=== PATIENT | female | born 1965 | race Caucasian/White ===

== ENCOUNTER 2017-03-28 23:25 | Inpatient (IN) | payer OTHER ==
--- NOTE | ~2017-03-28 | HP ---
History And Physical [address] [address] NAME: FRANKLIN MOSQUERA : 61 STATUS : ADM Safia PAT#: [id number] AGE: 51 ADM/REG DATE : 03/28/17 MR#: [id number] REPORT SERV DATE: 03/29/17 DICTATED BY: THEO LUI DATE: 03/29/17 REPORT STATUS : Draft TRANSCRIBED BY: MODL DATE: 03/29/17 DATE OF ADMISSION: 03/28/2017 POINT OF ENTRY: Transfer from [facility] Emergency Department PRIMARY CARE PHYSICIAN: None at this time. CHIEF COMPLAINT: Dehydration, muscle cramps, tetany. HISTORY OF PRESENT ILLNESS: Ms Mosquera is a 51-year-old female with a history of Crohn's disease and status post ileostomy with chronic high ostomy output who presents to [facility] Emergency Room with signs and symptoms of dehydration. The patient is new to this area and just moved from [place] to the [facility] a few days ago. She states that while in [place] secondary to her chronic high ostomy output, she has a port for which she would receive at least 1 L of lactated Ringer's IV fluids on a daily basis in order to prevent dehydration. The patient's last IV fluid infusion was on Friday, at which time, she felt that she needed de-access her port to prevent infection and she is not reactive to her port since. She presented to [facility] with signs of dehydration with dry mouth, craving brine water as well as lower extremity muscle cramps and spasms and upper extremity tetany which are hard for her course so when she gets dehydrated. She denies any fevers, night sweats, chills, chest pain, palpitations, shortness of breath, cough, sputum production, abdominal pain, nausea, vomiting, changes in the consistency frequency or output or volume of her ostomy output, dysuria. She did have a single episode of nausea and vomiting while at [facility] Emergency Department. Initial evaluation at [facility] notable for a white count of 15,100. Her BUN and creatinine were elevated at 57/3.7, amylase and lipase were mildly elevated. She was given IV fluids, a gram of cefepime as well as 30 mg of Toradol for pain, and transferred to [facility] for a higher level of care. COMPREHENSIVE REVIEW OF SYSTEMS: Otherwise, negative unless listed in history of present illness. PREVIOUS MEDICAL HISTORY: 1. Crohn's disease, status post ileostomy with chronic high ostomy output. 2. Chronic kidney stage 3. Baseline creatinine unknown. 3. Anxiety. 4. Depression. 5. Bipolar disease. SURGICAL HISTORY: 1. Ileostomy. History And Physical [address] [address] NAME: FRANKLIN MOSQUERA : 61 STATUS : ADM Safia PAT#: [id number] AGE: 51 ADM/REG DATE : 03/28/17 MR#: [id number] REPORT SERV DATE: 03/29/17 DICTATED BY: THEO LUI DATE: 03/29/17 REPORT STATUS : Draft TRANSCRIBED BY: CARLOS DATE: 03/29/17 2. Cholecystectomy. 3. Partial colon resection. ALLERGIES: TO STADOL, SCOPOLAMINE, VANCOMYCIN, AND LATUDA. HOME MEDICATIONS: Pending at the time of dictation. SOCIAL HISTORY: She denies any tobacco, alcohol, or illicits. 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 FAMILY MEDICAL HISTORY: Mother of complications of alcoholism. Father's history is unknown. She is an only child. LABS AND IMAGING: All obtained from transfer of records from [facility]. 1. White count 15.1, hemoglobin 15.7, hematocrit is 44.2, and platelet count is 362. 2. Sodium is 128, potassium 4.2, chloride 77, carbon dioxide 26, BUN 57, creatinine 3.7, glucose is 149, calcium is 11.0. Protein is 8.8, albumin is 4.9, bilirubin is 1.1, ALT 57, AST 44, alkaline phosphatase is 54. 3. Amylase is 195, upper limit of normal is 109, lipase is upper limit of normal 78. PHYSICAL EXAMINATION: VITAL SIGNS: Temperature is 97.8 degrees Fahrenheit, pulse is 109, respirations 16, saturating 99% on room air, blood pressure is 136/75. GENERAL: The patient is awake, alert, in no acute distress. Resting comfortably in bed. Well-developed, well-nourished female. HEENT: Atraumatic and normocephalic. Slightly dry mucous membranes. Pupils are equal, round, reactive to light and accommodation. Extraocular eye movements intact. No scleral icterus. NECK: No jugular venous distention. No carotid bruits. CARDIAC: Regular rate and rhythm. No murmurs or gallops. Normal S1, S2. LUNGS: Clear to auscultation bilaterally. No wheezes, rhonchi, or crackles. ABDOMEN: The patient has an ostomy in place in the right lower quadrant. Hypoactive bowel sounds throughout, but no rebound, guarding, or rigidity. She is soft and nontender in all quadrants. EXTREMITIES: Warm, perfused. No cyanosis, clubbing, or edema. SKIN: Warm and dry. PSYCH: Affect appropriate. NEURO: Alert and oriented x3. Cranial nerves II through XII grossly intact. Speech is normal. Gait not assessed. ASSESSMENT AND PLAN: Ms Mosquera is a 51-year-old female with history of Crohn's disease, status post ileostomy with chronic high ostomy output who presents with signs and symptoms of dehydration and found to have acute kidney injury. PROBLEM LIST: 1. Acute kidney injury and dehydration. History And Physical [address] [address] NAME: FRANKLIN MOSQUERA : 61 STATUS : ADM Safia PAT#: [id number] AGE: 51 ADM/REG DATE : 03/28/17 MR#: [id number] REPORT SERV DATE: 03/29/17 DICTATED BY: THEO LUI DATE: 03/29/17 REPORT STATUS : Draft TRANSCRIBED BY: CARLOS DATE: 03/29/17 2. Hyponatremia. 3. History of Crohn's disease with high ostomy output. 4. Leukocytosis. 5. Elevated lipase and amylase level. PLAN: 1. Acute kidney injury and dehydration. This is likely secondary to her high ostomy output and not receiving her usual IV fluid hydration for the past three days. We will continue aggressive IV fluid hydration overnight, checking urine lytes as well as renal ultrasound as well as urinalysis. 2. Leukocytosis. Unclear etiology at this time as she is afebrile. Denies any changes other than signs and symptoms of dehydration. We will check a chest x-ray, urinalysis, as well as stool cultures. Unable to obtain any blood cultures as she has already received antibiotics at [facility]. Also, checking procalcitonin level. Hold off on antibiotics as I have a source at this time. 3. Elevated lipase and amylase levels. The patient currently denies any abdominal pain. Has only had that isolated episode of nausea and vomiting x1 in the ER. She does not have any clinical evidence of pancreatitis at this time. Continue to monitor. 4. Hyponatremia. Checking urinalysis as well as urine lytes. Likely secondary to dehydration. 5. Crohn disease with high ostomy output. Again, she denies any change in her ostomy output. Denies the abdominal pain or fevers. Therefore, I will hold off on any abdominal imaging at this time. We will check stool studies and then provide IV fluid hydration. 6. Deep venous thrombosis prophylaxis. Heparin subcu. CODE STATUS: The patient wished to be full code. RADHA/MODLiset Theo Lui MD / [id number] CC: Phillip Jerome M.D.
--- NOTE | ~2017-03-28 | CN ---
Consultation Report [facility] [address] [place]. [address] NAME: FRANKLIN MOSQUERA : 61 STATUS : ADM IN [facility]#: [id number] AGE: 51 ADM/REG DATE : 03/29/17 MR#: [id number] REPORT SERV DATE: 03/30/17 DICTATED BY: CHEPE CEVALLOS DATE: 03/30/17 REPORT STATUS : Draft TRANSCRIBED BY: MODL DATE: 03/30/17 CONSULTATION DATE OF CONSULTATION: 03/29/2017 REASON FOR CONSULTATION: High output ostomy and possible pancreatitis. HISTORY OF PRESENT ILLNESS: Ms. Mosquera is a 51-year-old woman, who moved here eight days ago from [place]. She has a history of Crohn disease, status post ileostomy with small bowel and colonic resection. She apparently does not have short bowel syndrome, but does have a high output ostomy that has required intermittent IV fluids at home. She reports that she would give herself intermittent lactated ringers when she felt like she was becoming in a negative fluid balance. She has gone up to eight days without receiving this in the past. She reports that she has been on therapy including Remicade, Imuran, budesonide in the past for her Crohn's, but none recently. Her last surgery was done in 2013 and reports approximately five months after that, she began developing high output ostomy, approximately 5-6 L per day. The patient was noted to have an elevated lipase. The patient reports she did have some nausea and vomiting, but she is really not having any significant abdominal pain. At this time, she is feeling better and tolerating a regular diet. She also reports that she has attempted all forms of dietary modification including Imodium, but this has not helped. PAST MEDICAL HISTORY: Includes bipolar disorder, anxiety, and hyponatremia. HOME MEDICATIONS: Included Abilify, Ativan, magnesium oxide, Paxil, and Phenergan. ALLERGIES: INCLUDE MORPHINE, SCOPOLAMINE, BUTORPHANOL, VANCO, AND LURASIDONE. SOCIAL HISTORY: She is not currently smoking or drinking. PHYSICAL EXAMINATION: VITAL SIGNS: Revealed a temperature of 97.6, heart rate of 79, blood pressure 108/61. GENERAL: The patient is lying in bed, in no apparent distress. HEENT: Head is atraumatic and normocephalic. LUNGS: Clear. CARDIOVASCULAR: Regular rate and rhythm. ABDOMEN: Soft, nontender. EXTREMITIES: No clubbing, cyanosis, or edema. LABORATORY DATA: Laboratory evaluation revealed a hemoglobin of 12. Her potassium was low on admission. It is currently 3.4. Her lipase was 490, it is currently 348 which is within normal limits. IMPRESSION: Consultation Report [facility] [id number] [place]. [address] NAME: FRANKLIN MOSQUERA : 61 STATUS : ADM IN PAT#: [id number] AGE: 51 ADM/REG DATE : 03/29/17 MR#: [id number] REPORT SERV DATE: 03/30/17 DICTATED BY: CHEPE CEVALLOS DATE: 03/30/17 REPORT STATUS : Draft TRANSCRIBED BY: CARLOS DATE: 03/30/17 1. High output ostomy. Would recommend management with fluids as the patient has done in the past. The patient reports that she currently does not have insurance, but has been medicated in the past, has now an attempt to get medicated here. I did tell her that she would need to establish with a GI doctor in the area who did take her insurance, and determine whether she needs further treatment for Crohn's or whether any potential. 2. Elevated lipase. The patient does not appear to have clinical pancreatitis. She is not having symptoms at this time and CT was negative. At this point, we will sign off. Please arrange for patient to have outpatient arrangements of her IV fluids and she can follow up with a physician who accepts her insurance. Thank you. GO/CARLOS Chepe Cevallos MD / [id number] CC: Phillip Jerome M.D.
--- NOTE | ~2017-03-28 | CN ---
Consultation Report [facility] [address] [place]. [address] NAME: FRANKLIN MOSQUERA : 61 STATUS : ADM IN PAT#: [id number] AGE: 51 ADM/REG DATE : 03/29/17 MR#: [id number] REPORT SERV DATE: 04/03/17 DICTATED BY: AISSATOU KOVACS DATE: 04/03/17 REPORT STATUS : Draft TRANSCRIBED BY: CARLOS DATE: 04/03/17 DATE OF CONSULTATION: 04/03/2017 REASON FOR CONSULTATION: High-output ileostomy with history of Crohn's. 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 She has a port in place and has been treated with 1 L of lactated Ringer's on a daily basis when she lived in [place]. She moved to [place], [place] and has been here for one month. She does have a primary care doctor, Dr. Aguilar in [facility], but has not established with a bunch maker hand. She missed some of her IV fluid dosing, the port was not reaccessed, and she wound up in acute kidney injury with a creatinine of 2.93. CT scan showed no acute flare of Crohn's disease and no evidence of pancreatitis, although she had elevated amylase and lipase. Her ileostomy output yesterday was 3150, which included IV fluid and p.o. intake. Her IV fluid is currently going at 100 mL an hour. Please see Siri Juarez, nurse practitioner's dictation from 04/08/2017 for past medical history, past surgical history, allergies, meds, social history, family history, and review of systems. In addition, past surgical history, she has had either a right hemicolectomy or ileocecectomy 11 years ago when she was first diagnosed with Crohn's disease and also small- bowel resection, she says 10 inches of bowel was removed; both of those, she says, were necrotic. 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 Currently, the ileostomy is prolapsed 4 cm and has not been revised. In terms of medical management of her Crohn's disease, she has been on Imuran, Pentasa, Remicade, and Humira and then after that is when the decision for the ileostomy was made and she has not been on medications since then. PHYSICAL EXAMINATION: VITAL SIGNS: 98.2, 68, 16, 104/55. GENERAL: Alert and obese white female, in no acute distress. HEENT: Normocephalic and atraumatic. EOMI, PERRLA. Oropharynx is clear. NECK: Supple. No lymphadenopathy. LUNGS: Clear to auscultation bilaterally. HEART: Regular rate and rhythm. She has an Ggwzby-I-Sysq on the left chest, just below the left clavicle, which is currently infusing. ABDOMEN: She has a midline incision with an obese abdomen and pannus. The ileostomy is located in the right lower quadrant; it prolapses 4 cm; it is pink, viable, functional, and easily reducible. EXTREMITIES: Moves all extremities well. NEUROLOGIC: Cranial nerves 2 through 12 intact. SKIN: No rashes. Consultation Report [address] [address] NAME: FRANKLIN MOSQUERA : 61 STATUS : ADM IN [facility]#: [id number] AGE: 51 ADM/REG DATE : 03/29/17 MR#: [id number] REPORT SERV DATE: 04/03/17 DICTATED BY: AISSATOU KOVACS DATE: 04/03/17 REPORT STATUS : Draft TRANSCRIBED BY: MODLiset DATE: 04/03/17 LABORATORY DATA: Today, white count 5.5, hemoglobin 11.4, hematocrit 33.2, platelets of 147. Electrolytes within normal range, creatinine is 1.04, calcium and magnesium normal, phosphate is low at 1.9, and her albumin is 2.6. CT scan, as mentioned above, shows no evidence of acute flare of Crohn's and no pancreatitis. ASSESSMENT AND PLAN: A 51-year-old female with Crohn's disease, which is currently quiescent according to the patient with a high-output ileostomy. The patient is currently on no motility agents to decrease motility and has an ileostomy output between 2 and 4 L per day. We will start Imodium two tablets q.i.d., which is the maximum dose, and monitor her output, and she will stay on maintenance fluids at 100 mL an hour and then replace any excess, more than 300 mL of ileostomy output per eight hours with D5 half-normal saline and 20 of K. If this is inadequate, then we will start adding medications to decrease secretions from the GI tract, including the stomach and the pancreas. I will add a sed rate and a CRP to the patient's labs and get her established with GI. There is a question as to whether her ileostomy can be reversed. One question is, is her disease quiescent and can we get her on medical management for that. The second is the issue of the fecal incontinence, which would require sphincteroplasty and possibly replacing the sacral nerve stimulator before reversing the ileostomy. At a minimum, the ileostomy could be revised due to the prolapse; however, the patient has severe protein malnutrition and this needs to be addressed before any surgical intervention is indicated. It is my pleasure participating in the care of your patient. SL/MODL Aissatou Kovacs M.D. / [id number] CC: Kings Estrada MD
--- NOTE | ~2017-03-28 | IDS ---
Interim Discharge Summary [facility] [address] [place]. [address] NAME: FRANKLIN MOSQUERA : 61 STATUS : ADM IN PAT#: [id number] AGE: 51 ADM/REG DATE : 03/29/17 MR#: [id number] REPORT SERV DATE: 04/08/17 DICTATED BY: TANISHA BRAUN DATE: 04/08/17 REPORT STATUS : Draft TRANSCRIBED BY: MODLiset DATE: 04/08/17 ADMISSION DATE: 03/29/2017 DISCHARGE DATE: CURRENT DIAGNOSES: 1. High output ostomy with volume depletion and resultant Acute kidney injury. 2. Acute kidney injury with chronic kidney disease. 3. Crohn's. 4. Bipolar depression. 5. Oral abscess. 6. Dehydration. 7. Depression, bipolar. CONSULTATIONS: 1. GI, Arianne Lazo M.D. 2. Renal, Nader Sims M.D. 3. Surgery, Agueda Kovacs M.D. HOSPITAL COURSE: Please see H and P for complete details. HISTORY OF PRESENT ILLNESS: Briefly, Ms. Mosquera is a 51-year-old female with a complex past medical history of Crohn's, fistula formation with incontinence resulting in ileostomy, who has had multiple episodes of high output ostomy, recently has moved from [place] to [place], and is still in process of transitioning care, but is reported to have high volume output. Upon arrival, the patient was noted to be volume depleted and dehydrated with CM. Her creatinine was noted at 3.88, and did have electrolyte abnormalities. The patient was aggressively hydrated. Lytes were optimized, followed by as the patient showed a slow improvement with CM and kidney disease. The patient was evaluated by GI and Dr. Zapata with the Surgery due to the patient's ostomy as the patient has had chronic issues with this and has had difficulty with maintaining fluid balance as the patient has had outpatient infusions while in [place], so evaluation for possible plans for reversal at some point in time were discussed; however, current status of Crohn's is not known. The patient has been tried on multiple different therapy, but did not tolerate octreotide and is currently on mesalamine, dicyclomine, and prednisone for both Crohn's and to decrease high ostomy output. The patient has had improvement and has had started to have bulk formation. Goal is to decrease output to 1200 mL a day. Continue to treat as if Crohn's flare additionally. We will then need to monitor electrolytes closely as an outpatient and further evaluate for rectal repair for sphincter tone, will need eventual EGD and colonoscopy for Crohn's evaluation, at which time, then can be evaluated for possible reversal of ileostomy in multiple different steps. Barriers for discharge is current ostomy output. Establishment of PCP for outpatient followup for labs and possible effusions if ostomy increase again. The patient is also currently on Unasyn for oral abscess, can be transitioned to p.o. prior to discharge. Monitoring doses of antibiotics for additional Crohn's and possible exacerbation of diarrhea. Interim Discharge Summary [address] [address] NAME: FRANKLIN MOSQUERA : 61 STATUS : ADM IN PAT#: [id number] AGE: 51 ADM/REG DATE : 03/29/17 MR#: [id number] REPORT SERV DATE: 04/08/17 DICTATED BY: TANISHA BRAUN DATE: 04/08/17 REPORT STATUS : Draft TRANSCRIBED BY: CARLOS DATE: 04/08/17 DDN/CARLOS Tanisha Braun MD / [id number] CC: Tanisha Braun MD
--- NOTE | ~2017-03-28 | CN ---
Consultation Report [facility] [address] [place]. [address] NAME: FRANKLIN MOSQUERA : 61 STATUS : ADM IN PAT#: [id number] AGE: 51 ADM/REG DATE : 03/29/17 MR#: [id number] REPORT SERV DATE: 03/29/17 DICTATED BY: DATE: REPORT STATUS : Draft TRANSCRIBED BY: MODL DATE: 03/29/17 CONSULT DATE OF CONSULTATION: REASON FOR CONSULTATION: Acute kidney injury. HISTORY OF PRESENT ILLNESS: Ms. Mosquera is a 51-year-old white female, who unfortunately has a history of Crohn's disease with high output ileostomy and recently moved here from the [place], [place] area. She states that over the last year, she had followed with a concept artist in [place] and also primary care. She had been maintained initially on a liter of fluid and daily via a port that she has. However, most recently, before her move, she had been changed to two times weekly infusions of lactated Ringer's and this had been maintaining her hydration reasonably well until her move. Apparently several days back, it was time for her port to be de-accessed and never got reaccessed. She had not established any primary care and going to [facility], found to be dehydrated. Also, given a dose of 30 mg of Toradol for pain, creatinine of 3.88, and then transferred here. She states that she urinates usually two times daily and is doing so today. The symptoms of nausea, vomiting, tingling around her mouth and hands have all resolved today. No fevers or chills. No dysuria or hematuria and we are asked to see the patient in regard to hydration and to help with arrangement for outpatient infusions. PAST MEDICAL HISTORY: Crohn's disease, ileostomy in 2013, chronic dehydration, CKD with unknown baseline, depression, anxiety, and bipolar disorder. She has had cholecystectomy and partial colon resection. ALLERGIES: STADOL, SCOPOLAMINE, VANCOMYCIN, AND LATUDA. MEDICATIONS: At the time of this dictation, she is getting lactated Ringer's at 150. Her home medications are Abilify, Ativan, magnesium oxide, multivitamin, Paxil, Phenergan, and Requip. FAMILY MEDICAL HISTORY: No end-stage renal disease. SOCIAL HISTORY: She is . She is a nurse. No tobacco, alcohol, or illicit drug use. REVIEW OF SYSTEMS: A 12-point review of systems obtained and negative with the exception of that noted in the HPI. PHYSICAL EXAMINATION: VITAL SIGNS: Temp 98.4, blood pressure 108/60, pulse 93, respiratory rate 20, O2 saturation is 96%. GENERAL: This is a pleasant, cooperative white female. She is awake, alert, and oriented Consultation Report [address] [place]. [address] NAME: FRANKLIN MOSQUERA : 61 STATUS : ADM IN PAT#: [id number] AGE: 51 ADM/REG DATE : 03/29/17 MR#: [id number] REPORT SERV DATE: 03/29/17 DICTATED BY: DATE: REPORT STATUS : Draft TRANSCRIBED BY: CARLOS DATE: 03/29/17 x3, in no acute distress. Answers questions appropriately. HEENT: Normocephalic and atraumatic. Conjunctivae clear. Sclerae are anicteric. Pupils are equal and round. Oral mucosa is dry. NECK: Supple. Carotids are brisk. Neck veins are flat. No lymphadenopathy. LUNGS: Respirations are even and unlabored. Breath sounds are clear to auscultation. HEART: Rate is regular. She does have a 2/6 systolic ejection murmur. No rub or gallop. ABDOMEN: Soft, nontender. She has left-sided ileostomy. No CVA tenderness. BACK: Within normal limits. EXTREMITIES: No edema, cyanosis, or clubbing. SKIN: Warm, dry, and intact. No unusual rashes or skin lesions. NEURO: No focal deficits. Mood and affect, pleasant and appropriate. PERTINENT LABS AND X-RAYS: She had a renal ultrasound that was negative for obstruction. Her urine has no protein, no blood, 18 hyaline casts per high-power field. She has a negative chest x-ray. Sodium 130, potassium 3.6, chloride 87, CO2 of 35, BUN of 60, creatinine of 3.8, magnesium 1.8, albumin of 3.7, amylase 170, lipase of 190, TSH of 1.9, T4 of 1.3. WBC 13,000, H and H 14 and 38, platelets 263,000. IMPRESSION: 1. Acute kidney injury on chronic kidney disease, unknown baseline. [place] to be prerenal plus or minus the Toradol dosage she got. 2. Crohn's disease. 3. Status post ileostomy with high output syndrome requiring routine hydration with IV fluids. 4. Bipolar disorder. 5. Anxiety. 6. Hyponatremia. 7. Leukocytosis. PLAN: Agree with IV fluids. We will continue at the current rate. Avoid NSAIDs and have discussed avoidance of NSAIDs with the patient as well. We will try to work with case management and see if there is an infusion center in the [facility] where she can get her port accessed. She already knows how to give herself fluid. Also, she will need arrangements for primary care at the [facility]. We will follow along with you. Thank you for the consultation. SHRUTHI ANN-MARIE Harrell / [id number] Consultation Report [address] [address] NAME: FRANKLIN MOSQUERA : 61 STATUS : ADM IN [facility]#: [id number] AGE: 51 ADM/REG DATE : 03/29/17 MR#: [id number] REPORT SERV DATE: 03/29/17 DICTATED BY: DATE: REPORT STATUS : Draft TRANSCRIBED BY: CARLOS DATE: 03/29/17 CC: Yu Tomlin M.D.
--- NOTE | ~2017-03-28 | DS ---
Discharge Summary [facility] [address] [place]. [address] NAME: FRANKLIN LANDERS : 61 STATUS : ADM IN PAT#: [id number] AGE: 51 ADM/REG DATE : 03/29/17 MR#: [id number] REPORT SERV DATE: 04/08/17 DICTATED BY: NICKY DOLL DATE: 04/08/17 REPORT STATUS : Draft TRANSCRIBED BY: MODL DATE: 04/08/17 ADMISSION DATE: 03/29/2017 DISCHARGE DATE: 04/08/2017 FINAL HOSPITAL DIAGNOSES: 1. High-output ostomy with volume depletion and acute kidney injury. 2. Crohn's disease. 3. Bipolar. 4. Depression. 5. Oral abscess. CONSULTATIONS AND PROCEDURES: As listed in interim summary. CURRENT PHYSICAL FINDINGS AND HISTORY OF PRESENT ILLNESS: Please see dictated H and P by Dr. Fagan as well as interim summary by Dr. Estrada on the . I took over the patient's care on the and will dictate to that point. The patient had been hospitalized the prior week for high ostomy output. Several interventions have been done, most recently with Welchol. On the date of evaluation, GI and Surgery had signed off on her discharge. The patient's ostomy output had decreased significantly and she was making good progress in replacing her oral intake to match her ostomy output. Prescriptions were handled for discharge planning. The patient already had selected and has availability making a followup appointment with the PCP. GI and Surgery recs were noted and scheduled appropriately. The patient was felt stable for discharge. DISPOSITION: She is discharged home. She will follow up with Dr. Cevallos in four weeks. The patient will call to schedule the appointment. She will call her new PCP tomorrow for post hospital followup. She will receive a BMP in [id number] days to be reviewed by her PCP as well as Dr. Kovacs. They will schedule her followup. MEDICATIONS: Will be as follows: 1. Abilify 10 at bedtime. 2. WelChol 625 b.i.d. 3. Bentyl 20 a.c. and at bedtime. 4. Lomotil 5 mg q.i.d. 5. Imodium 4 mg 4 times daily. 6. Mesalamine 800 before meals. 7. Multivitamin. 8. Protonix 40. 9. Paxil 60. 10.Psyllium 1 pack twice daily. 11.Florastor 1 capsule daily. 12.Prednisone tapering dose. 13.Ativan 1 mg at bedtime p.r.n. 14.Magnesium 400 one per day. 15.Vitamin D 2000. 16.Requip 1.5 at bedtime as needed. Discharge Summary [address] [address] NAME: FRANKLIN LANDERS : 61 STATUS : ADM IN [facility]#: [id number] AGE: 51 ADM/REG DATE : 03/29/17 MR#: [id number] REPORT SERV DATE: 04/08/17 DICTATED BY: NICKY DOLL DATE: 04/08/17 REPORT STATUS : Draft TRANSCRIBED BY: CARLOS DATE: 04/08/17 17.Phenergan 25 q.6 p.r.n. 18.She was written a prescription also for Augmentin 875 b.i.d. for 5 days to finish her treatment for her dental infection. 19.She is to return for any recurrent dehydration or further symptoms. VALERIYF/CARLOS Nicky Doll M.D. / [id number] CC: Nicky Doll M.D.
[2017-03-29] MEDS ORDERED: ATV1 PO (00:24)
[2017-03-29] MEDS ORDERED: ABILIFY10 PO (00:25)
[2017-03-29] MEDS ORDERED: PAXIL30 MG PO (00:25)
[2017-03-29] MEDS ORDERED: MAGOX4 PO (00:26)
[2017-03-29] MEDS ORDERED: VITAMIN D2000 UNIT PO (00:26)
[2017-03-29] MEDS ORDERED: REQUIP1 PO (00:28)
[2017-03-29] MEDS ORDERED: PR25 PO (00:29)
[2017-03-29 01:46] LABS: BASOPHILS 0.1 %; BASOPHILS ABSOLUTE 0.02 10/3/uL (0.0-0.16); EOSINOPHILS 0 %; HEMATOCRIT 38.7 % (36.0-48.0); IMMATURE GRANULOCYTES 0.2 %; IMMATURE GRANULOCYTES ABSOLUTE 0.03 10/3/uL (0.0-0.11); LYMPHOCYTES 8.3 %; LYMPHOCYTES ABSOLUTE 1.13 10/3/uL (0.67-4.30); MEAN CORPUS HGB CONC 36.2 g/dL (32.0-36.0); MEAN CORPUSCULAR HEMOGLOB 30.6 pg (26.0-34.0); MEAN CORPUSCULAR VOLUME 84.7 fL (80-100); MEAN PLATELET VOLUME 9.6 fL (9.2-13.0); MONOCYTES 5.4 %; MONOCYTES ABSOLUTE 0.74 10/3/uL (0.21-1.20); NEUTROPHILS ABSOLUTE 11.71 10/3/uL (2.02-8.40); PLATELET COUNT 263 10/3/uL (150-400); RBC DISTRIBUTION WIDTH 13.9 % (12.0-16.0); RED CELL COUNT 4.57 10/6/uL (4.0-5.6); WHITE BLOOD CELLS 13.6 10/3/uL (4.5-10.5)
[2017-03-29 01:47] LABS: MANUAL DIFF NO %
[2017-03-29 01:59] LABS: ALBUMIN 3.7 G/DL (3.5-5.0); BUN (BLOOD UREA NITROGEN) 60 MG/DL (6-23); CHLORIDE, SERUM 87 MMOL/L (96-112); CO2 (CARBON DIOXIDE) 35 MMOL/L (24-34); CREATININE 3.88 MG/DL (0.55-1.02); FREE T4 1.73 NG/DL (0.76-1.46); GFR AFRICAN AMERICAN 14 ML/MIN (>=60); GFR NON AFRICAN AMERICAN 12 ML/MIN (>=60); GLUCOSE, SERUM 128 MG/DL (60-99); POTASSIUM, SERUM 3.6 MMOL/L (3.5-5.3); SODIUM, SERUM 130 MMOL/L (135-148)
[2017-03-29 09:06] LABS: OSMOLALITY, URINE 444 MOSM/KG (50-1200)
[2017-03-29 09:11] LABS: SODIUM, URINE < 5 MEQ/L
[2017-03-29 09:28] LABS: ASCORBIC ACID (UR NOT ORDER) 20 (NEG); BILIRUBIN, URINE NEGATIVE (NEG); KETONE, URINE TRACE MG/DL (NEG); LEUKOCYTE ESTERASE(NOT OR NEG (NEG); WBC (NOT ORDERED) (RFLEX) 1 (0-5)
[2017-03-29 16:18] LABS: BASOPHILS 0.7 %; BASOPHILS ABSOLUTE 0.06 10/3/uL (0.0-0.16); EOSINOPHILS 1.7 %; EOSINOPHILS ABSOLUTE 0.15 10/3/uL (0.0-0.53); HEMOGLOBIN 12.2 g/dL (12.0-16.0); IMMATURE GRANULOCYTES 0.2 %; IMMATURE GRANULOCYTES ABSOLUTE 0.02 10/3/uL (0.0-0.11); LYMPHOCYTES 23.4 %; LYMPHOCYTES ABSOLUTE 2.07 10/3/uL (0.67-4.30); MEAN CORPUS HGB CONC 35.5 g/dL (32.0-36.0); MEAN CORPUSCULAR HEMOGLOB 30.4 pg (26.0-34.0); MEAN CORPUSCULAR VOLUME 85.8 fL (80-100); MEAN PLATELET VOLUME 9.8 fL (9.2-13.0); MONOCYTES 6.6 %; MONOCYTES ABSOLUTE 0.58 10/3/uL (0.21-1.20); NEUTROPHILS 67.4 %; NEUTROPHILS ABSOLUTE 5.96 10/3/uL (2.02-8.40); PLATELET COUNT 241 10/3/uL (150-400); RBC DISTRIBUTION WIDTH 14.1 % (12.0-16.0); RED CELL COUNT 4.01 10/6/uL (4.0-5.6); WHITE BLOOD CELLS 8.8 10/3/uL (4.5-10.5)
[2017-03-29 16:20] LABS: HEMATOCRIT 34.4 % (36.0-48.0); MANUAL DIFF NO %
[2017-03-29 16:35] LABS: A/G RATIO 0.9 (0.7-1.9); ALBUMIN 3.3 G/DL (3.5-5.0); ALKALINE PHOSPHATASE 51 U/L (45-117); CALCIUM, SERUM 8.7 MG/DL (8.5-10.4); CHLORIDE, SERUM 87 MMOL/L (96-112); CO2 (CARBON DIOXIDE) 36 MMOL/L (24-34); GLOBULIN 3.7 G/DL (2.5-4.1); SGOT(AST) 67 U/L (5-40); SGPT(ALT) 54 U/L (5-65); SODIUM, SERUM 129 MMOL/L (135-148); TOTAL BILIRUBIN 0.8 MG/DL (0-1.2)
[2017-03-29 16:38] LABS: BUN (BLOOD UREA NITROGEN) 53 MG/DL (6-23); CREATININE 2.93 MG/DL (0.55-1.02); GFR AFRICAN AMERICAN 20 ML/MIN (>=60); GFR NON AFRICAN AMERICAN 18 ML/MIN (>=60); GLUCOSE, SERUM 90 MG/DL (60-99); POTASSIUM, SERUM 2.9 MMOL/L (3.5-5.3)
[2017-03-30 06:40] LABS: BASOPHILS 1.1 %; BASOPHILS ABSOLUTE 0.05 10/3/uL (0.0-0.16); EOSINOPHILS 3.4 %; EOSINOPHILS ABSOLUTE 0.15 10/3/uL (0.0-0.53); HEMATOCRIT 35.4 % (36.0-48.0); HEMOGLOBIN 12.2 g/dL (12.0-16.0); IMMATURE GRANULOCYTES 0.2 %; IMMATURE GRANULOCYTES ABSOLUTE 0.01 10/3/uL (0.0-0.11); LYMPHOCYTES 27.6 %; LYMPHOCYTES ABSOLUTE 1.23 10/3/uL (0.67-4.30); MEAN CORPUS HGB CONC 34.5 g/dL (32.0-36.0); MEAN CORPUSCULAR HEMOGLOB 30.3 pg (26.0-34.0); MEAN CORPUSCULAR VOLUME 88.1 fL (80-100); MEAN PLATELET VOLUME 9.9 fL (9.2-13.0); MONOCYTES 8.5 %; MONOCYTES ABSOLUTE 0.38 10/3/uL (0.21-1.20); NEUTROPHILS 59.2 %; NEUTROPHILS ABSOLUTE 2.63 10/3/uL (2.02-8.40); PLATELET COUNT 206 10/3/uL (150-400); RBC DISTRIBUTION WIDTH 14.1 % (12.0-16.0); RED CELL COUNT 4.02 10/6/uL (4.0-5.6)
[2017-03-30 06:46] LABS: MANUAL DIFF NO %; WHITE BLOOD CELLS 4.5 10/3/uL (4.5-10.5)
[2017-03-30 09:10] LABS: A/G RATIO 0.8 (0.7-1.9); ALKALINE PHOSPHATASE 47 U/L (45-117); CALCIUM, SERUM 8.2 MG/DL (8.5-10.4); GLOBULIN 3.6 G/DL (2.5-4.1); SGOT(AST) 60 U/L (5-40); SGPT(ALT) 56 U/L (5-65); TOTAL BILIRUBIN 0.4 MG/DL (0-1.2); TOTAL PROTEIN 6.6 G/DL (6.0-8.5)
[2017-03-30 09:14] LABS: BUN (BLOOD UREA NITROGEN) 31 MG/DL (6-23); CHLORIDE, SERUM 103 MMOL/L (96-112); CO2 (CARBON DIOXIDE) 28 MMOL/L (24-34); CREATININE 1.76 MG/DL (0.55-1.02); GFR AFRICAN AMERICAN 38 ML/MIN (>=60); GFR NON AFRICAN AMERICAN 32 ML/MIN (>=60); GLUCOSE, SERUM 118 MG/DL (60-99); POTASSIUM, SERUM 3.4 MMOL/L (3.5-5.3); SODIUM, SERUM 137 MMOL/L (135-148)
[2017-03-31 06:06] LABS: BASOPHILS 1.9 %; BASOPHILS ABSOLUTE 0.08 10/3/uL (0.0-0.16); EOSINOPHILS 4.9 %; EOSINOPHILS ABSOLUTE 0.21 10/3/uL (0.0-0.53); HEMATOCRIT 32.5 % (36.0-48.0); HEMOGLOBIN 10.9 g/dL (12.0-16.0); IMMATURE GRANULOCYTES 0.2 %; IMMATURE GRANULOCYTES ABSOLUTE 0.01 10/3/uL (0.0-0.11); LYMPHOCYTES 31.5 %; LYMPHOCYTES ABSOLUTE 1.34 10/3/uL (0.67-4.30); MEAN CORPUS HGB CONC 33.5 g/dL (32.0-36.0); MEAN CORPUSCULAR HEMOGLOB 29.5 pg (26.0-34.0); MEAN CORPUSCULAR VOLUME 88.1 fL (80-100); MEAN PLATELET VOLUME 9.6 fL (9.2-13.0); MONOCYTES 6.6 %; MONOCYTES ABSOLUTE 0.28 10/3/uL (0.21-1.20); NEUTROPHILS 54.9 %; NEUTROPHILS ABSOLUTE 2.33 10/3/uL (2.02-8.40); PLATELET COUNT 169 10/3/uL (150-400); RBC DISTRIBUTION WIDTH 14.2 % (12.0-16.0); RED CELL COUNT 3.69 10/6/uL (4.0-5.6); WHITE BLOOD CELLS 4.3 10/3/uL (4.5-10.5)
[2017-03-31 06:07] LABS: MANUAL DIFF NO %
[2017-03-31 06:34] LABS: ALBUMIN 2.8 G/DL (3.5-5.0); CALCIUM, SERUM 8.4 MG/DL (8.5-10.4); CHLORIDE, SERUM 110 MMOL/L (96-112); CO2 (CARBON DIOXIDE) 25 MMOL/L (24-34); GLUCOSE, SERUM 102 MG/DL (60-99); POTASSIUM, SERUM 3.6 MMOL/L (3.5-5.3); SODIUM, SERUM 141 MMOL/L (135-148)
[2017-03-31 06:36] LABS: BUN (BLOOD UREA NITROGEN) 16 MG/DL (6-23); CREATININE 1.24 MG/DL (0.55-1.02); GFR AFRICAN AMERICAN 57 ML/MIN (>=60); GFR NON AFRICAN AMERICAN 50 ML/MIN (>=60); PHOSPHORUS, SERUM 1.7 MG/DL (2.5-4.5)
[2017-04-01 06:14] LABS: CALCIUM, SERUM 8.1 MG/DL (8.5-10.4); CHLORIDE, SERUM 111 MMOL/L (96-112); CO2 (CARBON DIOXIDE) 22 MMOL/L (24-34); CREATININE 1.12 MG/DL (0.55-1.02); GFR AFRICAN AMERICAN 65 ML/MIN (>=60); GFR NON AFRICAN AMERICAN 56 ML/MIN (>=60); GLUCOSE, SERUM 85 MG/DL (60-99); PHOSPHORUS, SERUM 1.3 MG/DL (2.5-4.5); POTASSIUM, SERUM 4.2 MMOL/L (3.5-5.3); SODIUM, SERUM 143 MMOL/L (135-148)
[2017-04-01 06:19] LABS: BUN (BLOOD UREA NITROGEN) 11 MG/DL (6-23)
[2017-04-02 06:34] LABS: BASOPHILS 1.2 %; BASOPHILS ABSOLUTE 0.06 10/3/uL (0.0-0.16); EOSINOPHILS 4.8 %; EOSINOPHILS ABSOLUTE 0.24 10/3/uL (0.0-0.53); HEMATOCRIT 34.2 % (36.0-48.0); HEMOGLOBIN 11.5 g/dL (12.0-16.0); IMMATURE GRANULOCYTES 0.2 %; IMMATURE GRANULOCYTES ABSOLUTE 0.01 10/3/uL (0.0-0.11); LYMPHOCYTES 29.1 %; LYMPHOCYTES ABSOLUTE 1.46 10/3/uL (0.67-4.30); MEAN CORPUS HGB CONC 33.6 g/dL (32.0-36.0); MEAN CORPUSCULAR HEMOGLOB 29.9 pg (26.0-34.0); MEAN CORPUSCULAR VOLUME 89.1 fL (80-100); MEAN PLATELET VOLUME 9.6 fL (9.2-13.0); MONOCYTES ABSOLUTE 0.25 10/3/uL (0.21-1.20); NEUTROPHILS 59.7 %; NEUTROPHILS ABSOLUTE 2.99 10/3/uL (2.02-8.40); PLATELET COUNT 181 10/3/uL (150-400); RBC DISTRIBUTION WIDTH 14.8 % (12.0-16.0); RED CELL COUNT 3.84 10/6/uL (4.0-5.6)
[2017-04-02 06:42] LABS: MANUAL DIFF NO %
[2017-04-02 06:51] LABS: ALBUMIN 2.8 G/DL (3.5-5.0); BUN (BLOOD UREA NITROGEN) 8 MG/DL (6-23); CALCIUM, SERUM 8.1 MG/DL (8.5-10.4); CHLORIDE, SERUM 115 MMOL/L (96-112); CO2 (CARBON DIOXIDE) 23 MMOL/L (24-34); CREATININE 1.08 MG/DL (0.55-1.02); GFR AFRICAN AMERICAN 68 ML/MIN (>=60); GFR NON AFRICAN AMERICAN 59 ML/MIN (>=60); GLUCOSE, SERUM 102 MG/DL (60-99); PHOSPHORUS, SERUM 1.3 MG/DL (2.5-4.5); POTASSIUM, SERUM 4.3 MMOL/L (3.5-5.3); SODIUM, SERUM 144 MMOL/L (135-148)
[2017-04-03 06:03] LABS: BASOPHILS 1.1 %; BASOPHILS ABSOLUTE 0.06 10/3/uL (0.0-0.16); EOSINOPHILS 4.4 %; EOSINOPHILS ABSOLUTE 0.24 10/3/uL (0.0-0.53); HEMATOCRIT 33.2 % (36.0-48.0); HEMOGLOBIN 11.4 g/dL (12.0-16.0); IMMATURE GRANULOCYTES 0.2 %; IMMATURE GRANULOCYTES ABSOLUTE 0.01 10/3/uL (0.0-0.11); LYMPHOCYTES 26.3 %; LYMPHOCYTES ABSOLUTE 1.44 10/3/uL (0.67-4.30); MEAN CORPUS HGB CONC 34.3 g/dL (32.0-36.0); MEAN CORPUSCULAR HEMOGLOB 30.5 pg (26.0-34.0); MEAN CORPUSCULAR VOLUME 88.8 fL (80-100); MEAN PLATELET VOLUME 9.6 fL (9.2-13.0); MONOCYTES 7.7 %; MONOCYTES ABSOLUTE 0.42 10/3/uL (0.21-1.20); NEUTROPHILS 60.3 %; NEUTROPHILS ABSOLUTE 3.31 10/3/uL (2.02-8.40); PLATELET COUNT 147 10/3/uL (150-400); RBC DISTRIBUTION WIDTH 14.9 % (12.0-16.0); RED CELL COUNT 3.74 10/6/uL (4.0-5.6); WHITE BLOOD CELLS 5.5 10/3/uL (4.5-10.5)
[2017-04-03 06:11] LABS: MANUAL DIFF NO %
[2017-04-03 06:32] LABS: ALBUMIN 2.6 G/DL (3.5-5.0); BUN (BLOOD UREA NITROGEN) 8 MG/DL (6-23); CHLORIDE, SERUM 113 MMOL/L (96-112); CO2 (CARBON DIOXIDE) 22 MMOL/L (24-34); CREATININE 1.04 MG/DL (0.55-1.02); GFR AFRICAN AMERICAN 71 ML/MIN (>=60); GFR NON AFRICAN AMERICAN 61 ML/MIN (>=60); GLUCOSE, SERUM 88 MG/DL (60-99); POTASSIUM, SERUM 4.2 MMOL/L (3.5-5.3); SODIUM, SERUM 144 MMOL/L (135-148)
[2017-04-03 06:33] LABS: PHOSPHORUS, SERUM 1.9 MG/DL (2.5-4.5)
[2017-04-03 08:06] LABS: PREALBUMIN 21.6 MG/DL (17.0-43.0)
[2017-04-03 08:07] LABS: C-REACTIVE PROTEIN < 2.9 MG/L (<8.0)
[2017-04-04 06:47] LABS: BUN (BLOOD UREA NITROGEN) 7 MG/DL (6-23); CALCIUM, SERUM 8.4 MG/DL (8.5-10.4); CHLORIDE, SERUM 111 MMOL/L (96-112); CO2 (CARBON DIOXIDE) 24 MMOL/L (24-34); CREATININE 1.07 MG/DL (0.55-1.02); GFR AFRICAN AMERICAN 69 ML/MIN (>=60); GFR NON AFRICAN AMERICAN 59 ML/MIN (>=60); GLUCOSE, SERUM 108 MG/DL (60-99); POTASSIUM, SERUM 4.8 MMOL/L (3.5-5.3); SODIUM, SERUM 142 MMOL/L (135-148)
[2017-04-05 07:09] LABS: BUN (BLOOD UREA NITROGEN) 10 MG/DL (6-23); CALCIUM, SERUM 8.6 MG/DL (8.5-10.4); CHLORIDE, SERUM 111 MMOL/L (96-112); CO2 (CARBON DIOXIDE) 27 MMOL/L (24-34); CREATININE 1.09 MG/DL (0.55-1.02); GFR AFRICAN AMERICAN 67 ML/MIN (>=60); GFR NON AFRICAN AMERICAN 58 ML/MIN (>=60); GLUCOSE, SERUM 104 MG/DL (60-99); PHOSPHORUS, SERUM 2.5 MG/DL (2.5-4.5); POTASSIUM, SERUM 4.3 MMOL/L (3.5-5.3); SODIUM, SERUM 143 MMOL/L (135-148)
[2017-04-06 06:08] LABS: BASOPHILS 0.6 %; BASOPHILS ABSOLUTE 0.04 10/3/uL (0.0-0.16); EOSINOPHILS 1.4 %; HEMOGLOBIN 10.8 g/dL (12.0-16.0); IMMATURE GRANULOCYTES 0.3 %; IMMATURE GRANULOCYTES ABSOLUTE 0.02 10/3/uL (0.0-0.11); LYMPHOCYTES 22.2 %; LYMPHOCYTES ABSOLUTE 1.57 10/3/uL (0.67-4.30); MEAN CORPUS HGB CONC 33.8 g/dL (32.0-36.0); MEAN CORPUSCULAR HEMOGLOB 30.1 pg (26.0-34.0); MEAN CORPUSCULAR VOLUME 89.1 fL (80-100); MEAN PLATELET VOLUME 9.7 fL (9.2-13.0); MONOCYTES 8.1 %; MONOCYTES ABSOLUTE 0.57 10/3/uL (0.21-1.20); NEUTROPHILS 67.4 %; NEUTROPHILS ABSOLUTE 4.77 10/3/uL (2.02-8.40); RBC DISTRIBUTION WIDTH 15.3 % (12.0-16.0); RED CELL COUNT 3.59 10/6/uL (4.0-5.6); WHITE BLOOD CELLS 7.1 10/3/uL (4.5-10.5)
[2017-04-06 06:09] LABS: MANUAL DIFF NO %; PLATELET COUNT 194 10/3/uL (150-400)
[2017-04-06 06:33] LABS: A/G RATIO 0.8 (0.7-1.9); ALBUMIN 2.8 G/DL (3.5-5.0); ALKALINE PHOSPHATASE 46 U/L (45-117); BUN (BLOOD UREA NITROGEN) 10 MG/DL (6-23); CALCIUM, SERUM 8.6 MG/DL (8.5-10.4); CHLORIDE, SERUM 110 MMOL/L (96-112); CO2 (CARBON DIOXIDE) 26 MMOL/L (24-34); CREATININE 1.08 MG/DL (0.55-1.02); GFR AFRICAN AMERICAN 68 ML/MIN (>=60); GFR NON AFRICAN AMERICAN 59 ML/MIN (>=60); GLOBULIN 3.3 G/DL (2.5-4.1); GLUCOSE, SERUM 81 MG/DL (60-99); PHOSPHORUS, SERUM 2.7 MG/DL (2.5-4.5); PREALBUMIN 22.3 MG/DL (17.0-43.0); SGOT(AST) 13 U/L (5-40); SGPT(ALT) 30 U/L (5-65); SODIUM, SERUM 142 MMOL/L (135-148); TOTAL BILIRUBIN 0.4 MG/DL (0-1.2); TOTAL PROTEIN 6.1 G/DL (6.0-8.5)
[2017-04-07 05:40] LABS: BASOPHILS 0.5 %; BASOPHILS ABSOLUTE 0.03 10/3/uL (0.0-0.16); EOSINOPHILS 1.4 %; EOSINOPHILS ABSOLUTE 0.09 10/3/uL (0.0-0.53); HEMATOCRIT 31.8 % (36.0-48.0); HEMOGLOBIN 10.6 g/dL (12.0-16.0); IMMATURE GRANULOCYTES 0.3 %; IMMATURE GRANULOCYTES ABSOLUTE 0.02 10/3/uL (0.0-0.11); LYMPHOCYTES 23.4 %; LYMPHOCYTES ABSOLUTE 1.48 10/3/uL (0.67-4.30); MANUAL DIFF NO %; MEAN CORPUS HGB CONC 33.3 g/dL (32.0-36.0); MEAN CORPUSCULAR HEMOGLOB 29.8 pg (26.0-34.0); MEAN CORPUSCULAR VOLUME 89.3 fL (80-100); MEAN PLATELET VOLUME 9.7 fL (9.2-13.0); MONOCYTES 9.5 %; NEUTROPHILS 64.9 %; PLATELET COUNT 209 10/3/uL (150-400); RBC DISTRIBUTION WIDTH 15.2 % (12.0-16.0); RED CELL COUNT 3.56 10/6/uL (4.0-5.6); WHITE BLOOD CELLS 6.3 10/3/uL (4.5-10.5)
[2017-04-07 05:50] LABS: BUN (BLOOD UREA NITROGEN) 9 MG/DL (6-23); CALCIUM, SERUM 8.5 MG/DL (8.5-10.4); CHLORIDE, SERUM 111 MMOL/L (96-112); CO2 (CARBON DIOXIDE) 28 MMOL/L (24-34); CREATININE 1.11 MG/DL (0.55-1.02); GFR AFRICAN AMERICAN 66 ML/MIN (>=60); GFR NON AFRICAN AMERICAN 57 ML/MIN (>=60); GLUCOSE, SERUM 88 MG/DL (60-99); SODIUM, SERUM 144 MMOL/L (135-148)
[2017-04-07 05:51] LABS: POTASSIUM, SERUM 4.5 MMOL/L (3.5-5.3)
[2017-04-07 06:14] LABS: PROCALCITONIN <0.05 ng/mL (<0.5)
[2017-04-08 05:31] LABS: BASOPHILS 0.6 %; BASOPHILS ABSOLUTE 0.04 10/3/uL (0.0-0.16); EOSINOPHILS 1.9 %; EOSINOPHILS ABSOLUTE 0.13 10/3/uL (0.0-0.53); HEMATOCRIT 33.2 % (36.0-48.0); HEMOGLOBIN 11.3 g/dL (12.0-16.0); IMMATURE GRANULOCYTES 0.4 %; IMMATURE GRANULOCYTES ABSOLUTE 0.03 10/3/uL (0.0-0.11); LYMPHOCYTES 25.3 %; LYMPHOCYTES ABSOLUTE 1.73 10/3/uL (0.67-4.30); MEAN CORPUSCULAR HEMOGLOB 30.2 pg (26.0-34.0); MEAN CORPUSCULAR VOLUME 88.8 fL (80-100); MEAN PLATELET VOLUME 9.1 fL (9.2-13.0); MONOCYTES 6.3 %; MONOCYTES ABSOLUTE 0.43 10/3/uL (0.21-1.20); NEUTROPHILS 65.5 %; NEUTROPHILS ABSOLUTE 4.47 10/3/uL (2.02-8.40); PLATELET COUNT 233 10/3/uL (150-400); RBC DISTRIBUTION WIDTH 15.1 % (12.0-16.0); RED CELL COUNT 3.74 10/6/uL (4.0-5.6); WHITE BLOOD CELLS 6.8 10/3/uL (4.5-10.5)
[2017-04-08 05:34] LABS: MANUAL DIFF NO %
[2017-04-08 06:16] LABS: ALBUMIN 2.9 G/DL (3.5-5.0); BUN (BLOOD UREA NITROGEN) 10 MG/DL (6-23); CALCIUM, SERUM 8.9 MG/DL (8.5-10.4); CHLORIDE, SERUM 112 MMOL/L (96-112); CO2 (CARBON DIOXIDE) 26 MMOL/L (24-34); CREATININE 1.04 MG/DL (0.55-1.02); GFR AFRICAN AMERICAN 71 ML/MIN (>=60); GFR NON AFRICAN AMERICAN 61 ML/MIN (>=60); GLUCOSE, SERUM 82 MG/DL (60-99); PHOSPHORUS, SERUM 3.5 MG/DL (2.5-4.5); SODIUM, SERUM 145 MMOL/L (135-148)
[2017-04-08 06:17] LABS: FOLATE 26.7 NG/ML (>5.2)
[2017-04-08] MEDS ORDERED: ASACOL HD800 MG PO (18:49)
[2017-04-08] MEDS ORDERED: BENTYL20 PO (18:49)
[2017-04-08] MEDS ORDERED: P5 PO (18:49)
[2017-04-08] MEDS ORDERED: LOM PO (18:49)
[2017-04-08] MEDS ORDERED: PROTONIX PO (18:50)
[2017-04-08] MEDS ORDERED: AUG875 PO (18:50)
[2017-04-08] MEDS ORDERED: WELCHOL 625 MG625 MG PO (18:51)
[2017-04-13] MEDS ORDERED: AUG875 PO (21:01)
[2017-04-13] MEDS ORDERED: WELCHOL 625 MG625 MG PO (21:02)
[2017-04-13] MEDS ORDERED: IMOD PO (21:03)
[2017-04-13] MEDS ORDERED: LOM PO (21:03)
[2017-04-13] MEDS ORDERED: BENTYL20 PO (21:03)
[2017-04-13] MEDS ORDERED: ASACOL HD800 MG PO (21:04)
[2017-04-13] MEDS ORDERED: P5 PO (21:05)
[2017-04-13] MEDS ORDERED: PROBIOTIC PO (21:05)
[2017-04-13] MEDS ORDERED: MULTIVITAMI1 PO (21:06)
[2017-04-13] MEDS ORDERED: MULTIVIT/MIN PO (21:06)
[2017-04-13] MEDS ORDERED: MAGNESIUM PO (21:06)
[2017-04-13] MEDS ORDERED: METPAKSF PO (21:06)
[2017-04-13] MEDS ORDERED: ABILIFY20 MG PO (21:07)
[2017-04-13] MEDS ORDERED: VITAMIN B PO (21:07)
[2017-04-13] MEDS ORDERED: VITAMIN D OTC PO (21:07)
[2017-04-13] MEDS ORDERED: PAXIL30 MG PO (21:08)
== END 2017-04-08 23:33 | disposition home or self-care (01) | DRG 385 ==
LOC: 4SO 23:25
PROVIDERS: Internal Medicine; Nurse Practitioner; Student in an Organized Health Care Education/Training Program; Surgery
PROC: B5171ZZ Fluoroscopy of Left Subclavian Vein using Low Osmolar Contrast (ICD-10-PCS; principal; 2017-04-04)
DX: K50.918 Crohn's disease, unspecified, with other complication (principal); E43 Unspecified severe protein-calorie malnutrition; N17.9 Acute kidney failure, unspecified; E87.1 Hypo-osmolality and hyponatremia; K94.13 Enterostomy malfunction; N18.3 Chronic kidney disease, stage 3 (moderate); K12.2 Cellulitis and abscess of mouth; F31.30 Bipolar disorder, current episode depressed, mild or moderate severity, unspecified; Y83.3 Surgical operation with formation of external stoma as the cause of abnormal reaction of the patient, or of later complication, without mention of misadventure at the time of the procedure; Z68.35 Body mass index [BMI] 35.0-35.9, adult; E86.0 Dehydration; Y92.009 Unspecified place in unspecified non-institutional (private) residence as the place of occurrence of the external cause; Z79.899 Other long term (current) drug therapy; Z90.49 Acquired absence of other specified parts of digestive tract; Z88.5 Allergy status to narcotic agent; Z88.1 Allergy status to other antibiotic agents; Z88.8 Allergy status to other drugs, medicaments and biological substances; F41.9 Anxiety disorder, unspecified; I95.1 Orthostatic hypotension
CPT/HCPCS: 36593; 36598; 71010; 74176; 76775; 80048; 80053; 80069; 81001; 82150; 82330; 82533; 82570; 82607; 82746; 83690; 83735; 83935; 84100; 84132; 84134; 84145; 84300; 84439; 84443; 85025; 85652; 86140; 87040; 87045; 87046; 87046-59; 87328; 87329; 87493; 87493-59; 87899; 87899-59; 89055; A9270-GY; J0295; J2405; J2997; J3475; Q9967

== ENCOUNTER 2017-04-13 21:32 | Inpatient (IN) | payer OTHER ==
--- NOTE | ~2017-04-13 | DS ---
Discharge Summary [facility] [address] [place]. [address] NAME: FRANKLIN LANDERS : 61 STATUS : DIS IN PAT#: [id number] AGE: 51 ADM/REG DATE : 04/13/17 MR#: [id number] REPORT SERV DATE: 04/21/17 DICTATED BY: REAGAN CRUZ DATE: 04/18/17 REPORT STATUS : Draft TRANSCRIBED BY: CARLOS DATE: 04/18/17 ADMISSION DATE: 04/13/2017 DISCHARGE DATE: 04/18/2017 PRINCIPAL DIAGNOSIS: Severe hypovolemia with acute kidney injury due to a high output ileostomy versus Crohn disease. HISTORY OF PRESENT ILLNESS: Please see Dr. Benites on 04/13/2017. HOSPITAL COURSE: The patient was admitted for severe hypovolemia which had occurred after she moved to [place] from [place] to be closer to her children, who live in [place]. By doing so, she no longer had access to her daily infusions which she was getting through [place] Medicaid, which she no longer could have as she lives in a different state. In absence of that, she became severely hypovolemic from her high output ileostomy and came to the hospital with kidney failure. She was hydrated aggressively with resolution of her disease; however, she was maxed out on antidiarrheals. Seen by colorectal surgeon however, who was able to give her Depot Sandostatin with improvement in her ileostomy to 1.5 L daily down from greater than 3. Arrangements were made still for daily infusions of IV fluids, but it was anticipated she might be able to maintain her fluid intake with a Depot Sandostatin. She would follow up with Dr. Zapata for followup Sandostatin injections and efforts will be made to get her Medicaid, although in a nonmedicated expansion state that was felt to be unlikely. She would otherwise continue her same medications and was released in satisfactory condition with diet as tolerated. Activity as tolerated. Follow up with Dr. Zapata in two weeks with Protonix, Levsin, magnesium, Florastor, Welchol, prednisone every other day, Delzicol, Paxil, Imodium, Lomotil, Abilify. Greater than 30 minutes were spent in the care of this patient and discharge planning on discharge day. DICTATED BY: April Luna/MODL Reagan Cruz M.D. / [id number] / [id number] CC: April Luna George N. Gregory Olds, MD Shauna Lorenzo-Rivero, M.D.
--- NOTE | ~2017-04-13 | HP ---
History And Physical [facility] [id number] [place]. [address] NAME: FRANKLIN LANDERS : 61 STATUS : ADM IN [facility]#: [id number] AGE: 51 ADM/REG DATE : 04/13/17 MR#: [id number] REPORT SERV DATE: 04/14/17 DICTATED BY: TAMAR FORBES DATE: 04/13/17 REPORT STATUS : Draft TRANSCRIBED BY: MODLiset DATE: 04/13/17 DATE OF ADMISSION: 04/13/2017 HISTORY OF PRESENT ILLNESS: The patient is a very pleasant 51-year-old female, who was with a past medical history of Crohn disease and high-output ileostomy. She was recently discharged from the hospital on 04/08/2017 after hospitalization for high-output ileostomy and dehydration. On the day of discharge, the patient was very stable. Her acute kidney failure secondary to dehydration resolved, as well as she did not have any nausea and vomiting, but she said that on Friday, three days later, she started to have symptoms again. She developed high output from her ileostomy, as well as she was having nausea and vomiting this morning. She denies any chest pain. No shortness of breath. No abdominal pain. No fever. No rash. No headache. She says this is all dehydration related to her ileostomy. The patient had an oral abscess also, and she was recommended to take antibiotic Augmentin on discharge, which she said she almost completed. There was only one day to take it to fully complete it. CHRONIC MEDICAL PROBLEMS: Include high-output ostomy with volume depletion and acute kidney injury, previous admission Crohn disease, bipolar disorder, depression, oral abscess. She recently moved from [place]. She had partial-bowel resection and ileostomy placement; chronic kidney disease, stage 3; anxiety and depression. SURGERIES: Include, ileostomy, cholecystectomy, partial colon resection, appendectomy also, and carpal tunnel surgery. SOCIAL HISTORY: She now lives with her sister since she recently moved from [place]. No alcohol. No smoking. No recreational drug use. FAMILY HISTORY: Mother from alcoholism. She does not know her father. ALLERGIES: HER ALLERGIES INCLUDE MORPHINE, SCOPOLAMINE, STADOL, VANCOMYCIN, AND LATUDA. HOME MEDICATIONS: She was discharged on the following medications according to the discharge summary of Dr. Jerome: Abilify 10 mg a day, Welchol 625 p.o. b.i.d., Bentyl 20 mg before meals and at bedtime, Lomotil 5 mg q.i.d., Imodium 4 mg four times daily, mesalamine 800 mg before meals, multivitamins daily, Protonix 40 mg daily, Paxil 60 daily, psyllium one pack twice a day, Florastor one capsule daily, prednisone tapering dose, Ativan 1 mg at bedtime, magnesium 400 once per day, vitamin D 2000 units daily, Requip 1.2 at bedtime p.r.n., and Phenergan 25 mg p.o. q.6 hours p.r.n. REVIEW OF SYSTEMS: A 14-point review of system done is negative except what is stated in the history of present illness. PHYSICAL EXAMINATION: GENERAL: Well-nourished, well-developed female, not in acute distress. Resting quietly. VITAL SIGNS: Blood pressure, initially when she was vomiting was 189/134, now 120/70; History And Physical [address] [address] NAME: FRANKLIN LANDERS : 61 STATUS : ADM IN [facility]#: [id number] AGE: 51 ADM/REG DATE : 04/13/17 MR#: [id number] REPORT SERV DATE: 04/14/17 DICTATED BY: TAMAR FORBES DATE: 04/13/17 REPORT STATUS : Draft TRANSCRIBED BY: CARLOS DATE: 04/13/17 temperature 97.4; heart rate initially was 124, then changed to 90s after she vomited; temperature was 97.4; respiratory rate 22; oxygen saturation 98 on room air. HEENT: Head atraumatic, normocephalic. Conjunctivae clear. Pupils are equal and reactive to light and accommodation. Extraocular muscles are intact. NECK: Supple. Trachea is midline. No supraclavicular or cervical lymphadenopathy. LUNGS: Clear to auscultation bilaterally. Normal respiratory effort. CARDIOVASCULAR SYSTEM: Regular rate and rhythm. Point of maximal impulse not displaced. ABDOMEN: Very soft, nontender, nondistended. Positive normoactive bowel sounds. Ileostomy in place. No organomegaly. EXTREMITIES: No clubbing or cyanosis. No edema. SKIN: Normal color. Slightly decreased turgor. PSYCHIATRIC: Normal mood and affect. LABORATORY RESULTS: Sodium 128, potassium 5.5, chloride 94, carbon dioxide 18, BUN 36, creatinine 3.65, blood sugar 136, calcium 11.8, magnesium 2. Troponin less than 0.02. White count 14.5, hemoglobin 17.3, hematocrit 47.9, and platelet count 401. PT 14, INR 1.1. Chest x-ray is ordered, but currently pending. CT of the abdomen and pelvis without contrast ordered per emergency room physician, Dr. Romeo. EKG showed sinus tachycardia with rate 102. Otherwise, normal EKG. ASSESSMENT AND PLAN: This is a very pleasant 51-year-old female with a history of long- standing Crohn disease, status post bowel resections, status post ileostomy with a chronic high-output ileostomy and history of bipolar disorder, presented with: 1. Acute kidney injury secondary to dehydration secondary to high-output ileostomy. 2. Crohn disease. 3. Hyponatremia secondary to dehydration. 4. Nausea and vomiting secondary to dehydration. According to the patient, improved with intravenous Zofran. 5. One episode of hypertension secondary to stress of vomiting. Currently resolved. Blood pressure is in the normal range. 6. History of bipolar disorder, currently controlled. PLAN: We will admit the patient to Dr. Jerome's service to the hospital. We will start the patient on intravenous fluids, normal saline. She has a port and the port was unlocked and the fluids will be running. She has hyponatremia secondary to dehydration, so hyponatremia should get better with normal saline; as well as acute kidney injury with a creatinine being 3.65. On discharge, her creatinine was 1.04, so we will recheck her creatinine tomorrow; as well as she has mild hyperkalemia 5.5. With IV fluid hydration, we expect it also to improve. Leukocytosis, likely stress leukocytosis from nausea, vomiting, and dehydration. The patient is doing well. We will check her procalcitonin level as well. I do not suspect any infection. Her mouth also looks clean and she does not have any fever. We will continue patient's home medications and we will consult the patient's General Surgery, Dr. Kovacs to see if there is a possibility of reversal ileostomy, as well History And Physical [address] [place]. [address] NAME: FRANKLIN LANDERS : 61 STATUS : ADM IN PAT#: [id number] AGE: 51 ADM/REG DATE : 04/13/17 MR#: [id number] REPORT SERV DATE: 04/14/17 DICTATED BY: TAMAR FORBES DATE: 04/13/17 REPORT STATUS : Draft TRANSCRIBED BY: MODL DATE: 04/13/17 as we will consult her tower foreman Dr. Cevallos and my partner, Dr. Jerome will see this patient starting tomorrow morning. MG/MODL Tamar Forbes M.D. / [id number] CC: April Pettit MD Gregory Olds, MD Shauna Lorenzo-Rivero, M.D.
--- NOTE | ~2017-04-13 | CN ---
Consultation Report [facility] [address] [place]. [address] NAME: FRANKLIN MOSQUERA : 61 STATUS : ADM IN [facility]#: [id number] AGE: 51 ADM/REG DATE : 04/13/17 MR#: [id number] REPORT SERV DATE: 04/14/17 DICTATED BY: SUSANA BLANK DATE: 04/14/17 REPORT STATUS : Draft TRANSCRIBED BY: MODL DATE: 04/14/17 GI CONSULTATION DATE OF CONSULTATION: 04/14/2017 REASON FOR CONSULTATION: Evaluation and management of history of Crohn disease, admission with hyponatremia, and increased ostomy output. HISTORY OF PRESENT ILLNESS: Ms. Mosquera is a 51-year-old female patient whom we had seen for the first time in consultation on 03/30/2017 for a questionable pancreatitis and history of Crohn disease. The patient has recently moved to the [facility] to live with her sister from [place]. She has a history of Crohn disease diagnosed I believe she stated in 2011 at [place], [place]. She has had multiple previous surgeries including a small bowel resection with ileostomy after sphincterotomy, which did leave her incontinent of stool. She was recently inpatient from 03/29/2017 and discharged on 04/08/2017 for elevated ileostomy output, acute kidney injury, and hyponatremia, which all resolved, and she was doing well on a regimen of Imodium, Lomotil, console, Welchol, and Bentyl in the outpatient setting. She states that on 04/09/2017, she had 1200 mL out of her ileostomy and felt like she had a good day. She said she replaced that with 1 L of the free water. On the next day, she had roughly 1700 mL of ostomy output, she states she drank 1.5 L of free water. On Friday, she had 2000 mL of ileostomy output and states that she drank at least 2-1/2 L of free water. On Friday night into Friday, she had at least 1800 mL out via ostomy during the overnight hours. Secondary to increased ostomy output and general fatigue and weakness, she came in to [facility] for further evaluation and found to have a sodium level of 128, potassium of 5.5, BUN of 36, and a creatinine of 3.65. Presently, she states that she is feeling somewhat better, but is still weak. She had an episode of nausea with vomiting in the emergency room. Her ostomy output at present has been around 450 mL, it is liquid dark brown in color. She had a CT scan of the abdomen and pelvis without contrast on admission, which showed no evidence of flare of Crohn disease. C difficile has been checked and returned negative. White blood cells, she has 0 to 5 per high-powered field, and cultures and sensitivities are pending. I have discussed with her that at present no further GI changes in medications will be made. We will try to discuss with Dr. Zapata as the patient is requesting re-anastomosis; however, it was requested that the patient have recent endoscopy prior to that. This potentially could be done prior to discharge after her electrolyte imbalances have been corrected and her acute kidney injury has resolved. PAST MEDICAL HISTORY: She has a notable past medical history for Crohn disease, bipolar disorder, depression, oral abscess, partial bowel resection, ileostomy placement, chronic kidney disease, high ostomy output, and dehydration with volume depletion. SURGERIES: Ileostomy, cholecystectomy, partial colon resection, appendectomy, and carpal tunnel surgery. Consultation Report [place] [id number] [facility] [place]. [address] NAME: FRANKLIN MOSQUERA : 61 STATUS : ADM IN [facility]#: [id number] AGE: 51 ADM/REG DATE : 04/13/17 MR#: [id number] REPORT SERV DATE: 04/14/17 DICTATED BY: SUSANA BLANK DATE: 04/14/17 REPORT STATUS : Draft TRANSCRIBED BY: CARLOS DATE: 04/14/17 SOCIAL HISTORY: She is disabled. At present, she lives with her sister. Denies alcohol, tobacco, or illicits. FAMILY HISTORY: Noncontributory from a GI standpoint. ALLERGIES: MORPHINE, SCOPOLAMINE, STADOL, VANCOMYCIN, AND LATUDA. HOME MEDICATIONS: Augmentin, Abilify, vitamin B, Welchol, Bentyl, Lomotil, Imodium, multivitamin, Paxil, prednisone, Metamucil, Asacol, probiotic, magnesium, and vitamin D. REVIEW OF SYSTEMS: A 10-point review of systems has been obtained with pertinent positives being addressed in the history of present illness. PHYSICAL EXAMINATION: VITAL SIGNS: Temperature is 98.4, pulse 89, respirations 18, and blood pressure 123/58. NEUROLOGIC: Reveals an alert, female, who awakens to name. She is oriented x3. She has obese body habitus. No focal deficits noted. GENERAL: Cooperative, in no acute distress. HEAD, EARS, EYES, NOSE, AND THROAT: Anicteric. Pupils are equal, round, and reactive to light and accommodation. Normocephalic and atraumatic. NECK: No JVD. No palpable nodes. Supple. LUNGS: Clear anteriorly with normal respiratory effort exhibited. Equal expansion. CARDIOVASCULAR SYSTEM: Regular rate and rhythm. ABDOMEN: Soft, nontender with active bowel sounds. She has a right-sided ostomy with liquid brown output. EXTREMITIES: No edema. Normal distal pulses. SKIN: Warm, dry, and intact. PERTINENT LABORATORY DATA: Sodium is 126, potassium is 5.2, BUN is 43, and creatinine 3.79. White count 15.3, hemoglobin 15.4, hematocrit 43.8, and platelet count 328. ASSESSMENT: 1. History of Crohn disease with resection and elevated ileostomy output. No evidence of Crohn's flare on noncontrasted CT. 2. Hyponatremia. 3. Acute kidney injury and dehydration. 4. Nausea and vomiting. PLAN: 1. Continue current Crohn's and antidiarrheal medications. 2. Limit free H2O. Follow up renal consult. We will follow. Consultation Report [address] [address] NAME: FRANKLIN MOSQUERA : 61 STATUS : ADM IN [facility]#: [id number] AGE: 51 ADM/REG DATE : 04/13/17 MR#: [id number] REPORT SERV DATE: 04/14/17 DICTATED BY: SUSANA BLANK DATE: 04/14/17 REPORT STATUS : Draft TRANSCRIBED BY: CARLOS DATE: 04/14/17 TANIA/CARLOS ANN-MARIE Shah / [id number] CC: April Pettit GEORGE N.
--- NOTE | ~2017-04-13 | CN ---
Consultation Report [facility] [address] [place]. [address] NAME: FRANKLIN LANDERS : 61 STATUS : ADM IN PAT#: [id number] AGE: 51 ADM/REG DATE : 04/13/17 MR#: [id number] REPORT SERV DATE: 04/14/17 DICTATED BY: CHELI CHRISTINA JR DATE: 04/14/17 REPORT STATUS : Draft TRANSCRIBED BY: MODL DATE: 04/14/17 DATE OF CONSULTATION: REASON FOR CONSULTATION: Acute kidney injury and hyponatremia. HISTORY OF PRESENT ILLNESS: This is a fairly pleasant 51-year-old female patient who is readmitted for acute kidney injury and hyponatremia. She was previously seen by our service and has a known difficulty with a high output ostomy. She is followed chronically in the outpatient setting by Dr. Agueda Kovacs, who has seen her in evaluation. This morning, we are consulted for an acute kidney injury with noted hyponatremia. She was placed inpatient on initial presentation in favor of further supportive care and workup. She does demonstrate a leukocytosis as well as a negative C difficile. Her creatinine on initial presentation was at 3.65 and has now risen to 3.79 on subsequent laboratory evaluation on 04/14/2017. Her sodium on initial presentation was at 128, now at 126. This has prompted Dr. Kovacs to restrict her oral free water in efforts to combat her hyponatremia. The patient reports onset of nausea, vomiting, and diarrhea worsening over the last 48-72 hours. She was recently seen by our service with sign-off during her hospital stay with a creatinine of 1.24 and a sodium of 141. This was on 03/31/2017. Re- evaluation is requested today as her creatinine is elevated at 3.79 with a sodium of 126. The patient is lying in bed this morning. She denies current complaints overall. She does complain of some chest tightness and pressure, which she has voiced to her nurse this morning. Initial troponin has been negative on evaluation. She continues to have some difficulty with nausea and abdominal pain. PAST MEDICAL/SURGICAL HISTORY: Positive for previous acute kidney injuries as listed above in her HPI. History is also positive for Crohn disease with ileostomy in 2013, chronic dehydration with high output ostomy, chronic kidney disease with unknown baseline, most recent stable creatinine at 1.24 on 03/31/2017, depression, anxiety, and bipolar disorder, cholecystectomy and partial colon resection. REVIEW OF SYSTEMS: Completed, see HPI for pertinent details. FAMILY HISTORY: Noncontributory and not reviewed during this consultation. ALLERGIES: SHE LISTS ALLERGIES TO MORPHINE, SCOPOLAMINE, STADOL, VANCOMYCIN, AND LATUDA. ACTIVE MEDICATIONS: Include Augmentin 875 mg p.o. b.i.d. x5 days, started on 04/09/2017; Abilify 20 mg p.o. at bedtime; vitamin B one tablet p.o. daily, Welchol 625 mg p.o. q.12, Bentyl 20 mg four times a day, Lomotil 2.5 mg four times a day, Imodium 4 mg four times a day, multivitamin tab one daily at lunch, Paxil 60 mg p.o. at bedtime, Deltasone p.o. q.48 hours, Metamucil one packet p.o. q.12, Asacol 400 mg p.o. t.i.d., probiotic one cap p.o. daily, magnesium 500 mg p.o. with lunch, and vitamin D one over the counter daily. PHYSICAL EXAMINATION: Consultation Report [address] [address] NAME: FRANKLIN LANDERS : 61 STATUS : ADM IN [facility]#: [id number] AGE: 51 ADM/REG DATE : 04/13/17 MR#: [id number] REPORT SERV DATE: 04/14/17 DICTATED BY: CHELI CHRISTINA JR DATE: 04/14/17 REPORT STATUS : Draft TRANSCRIBED BY: CARLOS DATE: 04/14/17 VITAL SIGNS: Blood pressure at 128/78, temperature at 97.6, respiratory rate at 18, heart rate at 100 beats per minute. GENERAL: She is an acutely ill-appearing female patient, lying in bed during evaluation. She complains of some chest tightness, but not overt chest pain. HEENT: Normocephalic and atraumatic. Normal ocular movements. No scleral icterus. No conjunctival pallor is appreciated. NECK: Without thyromegaly. No JVD or mass. CHEST: Shows positive S1 and S2. No rubs or gallops. LUNGS: Diminished, but clear to auscultation throughout with normal expansion and effort bilaterally. GI: Shows positive bowel sounds in all four quadrants. No appreciable mass. No tenderness. She does show ileostomy to her abdominal area, which appears to be intact and well functioning. NEUROLOGIC: She appears to be grossly intact and nonfocal. SKIN: Warm, dry, and intact to visualized surfaces. No rash, lesions, or ecchymosis. EXTREMITIES: Show positive pulses. No clubbing, cyanosis, or edema. PSYCHIATRIC: She is of appropriate mood and affect. LABORATORY DATA: Pertinent laboratories and imaging to this evaluation are as follows: C difficile testing is negative. Troponin at 10:46 this morning was at 0.02. PA chest and lateral: Lungs are clear with normal heart size. Most recent electrolyte profile: Sodium 126, potassium 5.2, chloride 97, CO2 of 23, BUN 43, creatinine 3.79, reflected GFR at 13 mL/minute, glucose of 130, calcium 10.8. CBC: White blood cell count 15.6, RBC 5.06, hemoglobin and hematocrit are 15.4 and 43.8, platelets at 328. IMPRESSION AND PLAN: This is a 51-year-old female patient. Last available creatinine to our service prior to sign-off on 03/31/2017 was at 1.24 with a sodium of 141. Admitted for chronic volume depletion due to high output ostomy with known history of Crohn disease, who is currently on normal saline at 120 mL/h. Her free p.o. fluids have been restricted at the request of Dr. Kovacs. She continues on normal saline to replace her fluids. We will continue the current regimen as in place by Hospitalist Service with the assistance of Dr. Kovacs. Her hyponatremia may be exacerbated by dosing of Paxil with known markers of side effect profile of syndrome of inappropriate antidiuretic hormone secretion and hyponatremia. May consider removing that medication if hyponatremia continues to be problematic. We will defer that to the hospitalist team with her complaint of chest pressure, continue to trend her troponins as above and defer any management acutely or subacutely to primary team. Check serum osmolality and urine osmolality and restrict free water as planned, troponins as planned. Urine sodium and procalcitonin also will be evaluated with noted decreased albumin and hypercalcemia on evaluation. Would avoid supplemental calcium-containing medications and will evaluate her albumin as well as a serum ionized calcium. Further modification of treatment plan may be made based on clinical presentation of the patient's laboratory results. Further consultation with Renal attending. We appreciate consultation. We are glad to follow. Consultation Report [place] [id number] [place]. [address] NAME: FRANKLIN LANDERS : 61 STATUS : ADM IN PAT#: [id number] AGE: 51 ADM/REG DATE : 04/13/17 MR#: [id number] REPORT SERV DATE: 04/14/17 DICTATED BY: CHELI CHRISTINA JR DATE: 04/14/17 REPORT STATUS : Draft TRANSCRIBED BY: CARLOS DATE: 04/14/17 DICTATED BY: Logan Starr NP JR/CARLOS Cheli Christina Jr, M.D. / [id number] CC: April Pettit GEORGE N.
--- NOTE | ~2017-04-13 | CN ---
Consultation Report [facility] [address] [place]. [address] NAME: FRANKLIN MOSQUERA : 61 STATUS : ADM IN [facility]#: [id number] AGE: 51 ADM/REG DATE : 04/13/17 MR#: [id number] REPORT SERV DATE: 04/14/17 DICTATED BY: AISSATOU KOVACS DATE: 04/14/17 REPORT STATUS : Draft TRANSCRIBED BY: CARLOS DATE: 04/14/17 CONSULT NOTE. DATE OF CONSULTATION: 04/14/2017 REASON FOR CONSULTATION: High output ileostomy with acute kidney injury and hyponatremia. HISTORY OF PRESENT ILLNESS: Ms Mosquera is well known to me. She is a 51-year-old female, who has had Crohn's disease for some time, was diagnosed in [place], [place], and recently moved in February. Her surgeries include a small bowel resection and ileostomy after a sphincterotomy which left her incontinent. At this time she is reestablishing care and was recently admitted, just discharged on 04/08/2017 due to high output ileostomy and her regimen included Imodium eight tablets per day, Lomotil eight tablets per day, Console two packets per day, and Welchol 625 mg p.o. b.i.d. The patient refused to take Sandostatin. Please see my dictation from 04/03/2017 of the original consult for past medical history, past surgical history, allergies, medications, social history, family history. REVIEW OF SYSTEMS: As stated in HPI, otherwise, negative. PHYSICAL EXAMINATION: VITAL SIGNS: 98.4, 89, 18, 123/58, and then over the 12 hour she has been admitted, 450 mL have come from the ileostomy. GENERAL: Alert and obese white female, in no acute distress. HEENT: Normocephalic and atraumatic. EOMI. PERRLA. Oropharynx is clear. NECK: Supple. No lymphadenopathy. LUNGS: Clear to auscultation bilaterally. HEART: Regular rate and rhythm. ABDOMEN: Obese with a midline incision, the ileostomy is somewhat prolapsed about 2 cm, but it is pink, viable, and functional. EXTREMITIES: Moves all extremities well. NEUROLOGIC: Cranial nerves 2 through 12 intact. SKIN: No rashes. LABORATORY DATA: White count is actually up, 15.3 up from 14.5, H and H 15.4 and 43.8, and platelets of 328. Electrolytes: Sodium is actually down after treatment, she came in at 128, it is now 126, potassium is 5.2, creatinine is also up from admission 3.79 up from 3.65. Troponins are negative. The CT scan shows no evidence of inflammation of the small or large bowel. ASSESSMENT AND PLAN: High output ileostomy with acute on chronic kidney injury. Consultation Report [place] [id number] [place]. [address] NAME: FRANKLIN MOSQUERA : 61 STATUS : ADM IN PAT#: [id number] AGE: 51 ADM/REG DATE : 04/13/17 MR#: [id number] REPORT SERV DATE: 04/14/17 DICTATED BY: AISSATOU KOVACS DATE: 04/14/17 REPORT STATUS : Draft TRANSCRIBED BY: CARLOS DATE: 04/14/17 PLAN: At this point, the patient is on the correct regimen, ileostomy output since admission does not appear to be overly high for expectations. I would recommend avoiding free water and may be that the patient is drinking too much free water and use Gatorade Powerade or electrolyte drinks instead, and then replete the excess more than 300 mL per shift in order to keep pace with the ileostomy. It is my pleasure participating in the care of your patient. SCARLETT/CARLOS Aissatou Kovacs M.D. / [id number] CC: April Pettit DO
[2017-04-13 15:50] LABS: BASOPHILS 0.8 %; BASOPHILS ABSOLUTE 0.11 10/3/uL (0.0-0.16); EOSINOPHILS 0.6 %; EOSINOPHILS ABSOLUTE 0.08 10/3/uL (0.0-0.53); IMMATURE GRANULOCYTES 0.5 %; IMMATURE GRANULOCYTES ABSOLUTE 0.07 10/3/uL (0.0-0.11); LYMPHOCYTES 14.7 %; LYMPHOCYTES ABSOLUTE 2.13 10/3/uL (0.67-4.30); MEAN CORPUSCULAR HEMOGLOB 31.1 pg (26.0-34.0); MEAN PLATELET VOLUME 9.3 fL (9.2-13.0); MONOCYTES 6.2 %; NEUTROPHILS 77.2 %; NEUTROPHILS ABSOLUTE 11.17 10/3/uL (2.02-8.40); RBC DISTRIBUTION WIDTH 14.6 % (12.0-16.0)
[2017-04-13 15:51] LABS: ER CBC TAT 0 Hrs 09 Mins; HEMATOCRIT 47.9 % (36.0-48.0); HEMOGLOBIN 17.3 g/dL (12.0-16.0); MANUAL DIFF NO %; MEAN CORPUS HGB CONC 36.1 g/dL (32.0-36.0); PLATELET COUNT 401 10/3/uL (150-400); RED CELL COUNT 5.57 10/6/uL (4.0-5.6); WHITE BLOOD CELLS 14.5 10/3/uL (4.5-10.5)
[2017-04-13 15:56] LABS: INTERNATIONAL NORMAL RATI 1.1 UNITS (-); PARTIAL THROMBO TIME 33.7 SEC (22.5-37.2)
[2017-04-13 16:06] LABS: CHEST PAIN PROFILE TAT 0 Hrs 24 Mins; TROPONIN I <0.02 NG/ML (<0.05)
[2017-04-13 16:08] LABS: BUN (BLOOD UREA NITROGEN) 36 MG/DL (6-23); CALCIUM, SERUM 11.8 MG/DL (8.5-10.4); CHLORIDE, SERUM 94 MMOL/L (96-112); CO2 (CARBON DIOXIDE) 18 MMOL/L (24-34); CREATININE 3.65 MG/DL (0.55-1.02); GFR AFRICAN AMERICAN 16 ML/MIN (>=60); GFR NON AFRICAN AMERICAN 13 ML/MIN (>=60); GLUCOSE, SERUM 136 MG/DL (60-99); POTASSIUM, SERUM 5.5 MMOL/L (3.5-5.3); SODIUM, SERUM 128 MMOL/L (135-148)
[~2017-04-13 21:32] MED LIST: ABILIFY10 PO; ABILIFY20 MG PO; ASACOL HD800 MG PO; ATV1 PO; AUG875 PO; BENTYL20 PO; IMOD PO; LOM PO; MAGNESIUM PO; MAGOX4 PO; METPAKSF PO; MULTIVIT/MIN PO; MULTIVITAMI1 PO; P5 PO; PAXIL30 MG PO; PR25 PO; PROBIOTIC PO; PROTONIX PO; REQUIP1 PO; VITAMIN B PO; VITAMIN D OTC PO; VITAMIN D2000 UNIT PO; WELCHOL 625 MG625 MG PO
[2017-04-13 22:17] LABS: PROCALCITONIN 0.22 ng/mL (<0.5)
[2017-04-14 05:25] LABS: BASOPHILS 0.6 %; BASOPHILS ABSOLUTE 0.09 10/3/uL (0.0-0.16); EOSINOPHILS 0.3 %; EOSINOPHILS ABSOLUTE 0.05 10/3/uL (0.0-0.53); HEMATOCRIT 43.8 % (36.0-48.0); HEMOGLOBIN 15.4 g/dL (12.0-16.0); IMMATURE GRANULOCYTES 0.4 %; IMMATURE GRANULOCYTES ABSOLUTE 0.06 10/3/uL (0.0-0.11); LYMPHOCYTES 12.4 %; LYMPHOCYTES ABSOLUTE 1.89 10/3/uL (0.67-4.30); MEAN CORPUS HGB CONC 35.2 g/dL (32.0-36.0); MEAN CORPUSCULAR HEMOGLOB 30.4 pg (26.0-34.0); MEAN CORPUSCULAR VOLUME 86.6 fL (80-100); MEAN PLATELET VOLUME 9.3 fL (9.2-13.0); MONOCYTES 8.9 %; MONOCYTES ABSOLUTE 1.36 10/3/uL (0.21-1.20); NEUTROPHILS 77.4 %; NEUTROPHILS ABSOLUTE 11.81 10/3/uL (2.02-8.40); PLATELET COUNT 328 10/3/uL (150-400); RED CELL COUNT 5.06 10/6/uL (4.0-5.6); WHITE BLOOD CELLS 15.3 10/3/uL (4.5-10.5)
[2017-04-14 05:26] LABS: MANUAL DIFF NO %
[2017-04-14 05:36] LABS: CHLORIDE, SERUM 97 MMOL/L (96-112); CREATININE 3.79 MG/DL (0.55-1.02); GFR AFRICAN AMERICAN 15 ML/MIN (>=60); GFR NON AFRICAN AMERICAN 13 ML/MIN (>=60); GLUCOSE, SERUM 130 MG/DL (60-99); POTASSIUM, SERUM 5.2 MMOL/L (3.5-5.3); SODIUM, SERUM 126 MMOL/L (135-148)
[2017-04-14 05:37] LABS: BUN (BLOOD UREA NITROGEN) 43 MG/DL (6-23); CALCIUM, SERUM 10.8 MG/DL (8.5-10.4); CO2 (CARBON DIOXIDE) 23 MMOL/L (24-34)
[2017-04-14 10:46] LABS: TROPONIN I <0.02 NG/ML (<0.05)
[2017-04-14 12:18] LABS: PROCALCITONIN 0.13 ng/mL (<0.5)
[2017-04-14 15:12] LABS: ASCORBIC ACID (UR NOT ORDER) 20 (NEG); BILIRUBIN, URINE NEGATIVE (NEG); KETONE, URINE NEGATIVE (NEG); WBC (NOT ORDERED) (RFLEX) 4 (0-5)
[2017-04-14 15:13] LABS: LEUKOCYTE ESTERASE(NOT OR TRACE (NEG)
[2017-04-14 15:23] LABS: OSMOLALITY, URINE 413 MOSM/KG (50-1200); SODIUM, URINE < 5 MEQ/L
[2017-04-15 03:20] LABS: BASOPHILS 0.7 %; BASOPHILS ABSOLUTE 0.06 10/3/uL (0.0-0.16); EOSINOPHILS 1.6 %; EOSINOPHILS ABSOLUTE 0.13 10/3/uL (0.0-0.53); HEMOGLOBIN 12.6 g/dL (12.0-16.0); IMMATURE GRANULOCYTES 0.4 %; IMMATURE GRANULOCYTES ABSOLUTE 0.03 10/3/uL (0.0-0.11); LYMPHOCYTES 28.4 %; LYMPHOCYTES ABSOLUTE 2.29 10/3/uL (0.67-4.30); MEAN CORPUS HGB CONC 34.1 g/dL (32.0-36.0); MEAN CORPUSCULAR HEMOGLOB 30.1 pg (26.0-34.0); MEAN CORPUSCULAR VOLUME 88.3 fL (80-100); MEAN PLATELET VOLUME 9.3 fL (9.2-13.0); MONOCYTES 8.1 %; MONOCYTES ABSOLUTE 0.65 10/3/uL (0.21-1.20); NEUTROPHILS 60.8 %; NEUTROPHILS ABSOLUTE 4.91 10/3/uL (2.02-8.40); PLATELET COUNT 278 10/3/uL (150-400); RBC DISTRIBUTION WIDTH 14.9 % (12.0-16.0); RED CELL COUNT 4.18 10/6/uL (4.0-5.6)
[2017-04-15 03:21] LABS: HEMATOCRIT 36.9 % (36.0-48.0); MANUAL DIFF NO %; WHITE BLOOD CELLS 8.1 10/3/uL (4.5-10.5)
[2017-04-15 03:31] LABS: ALBUMIN 3.4 G/DL (3.5-5.0); CHLORIDE, SERUM 105 MMOL/L (96-112); CO2 (CARBON DIOXIDE) 24 MMOL/L (24-34); PHOSPHORUS, SERUM 3.3 MG/DL (2.5-4.5); POTASSIUM, SERUM 4.6 MMOL/L (3.5-5.3)
[2017-04-15 03:32] LABS: BUN (BLOOD UREA NITROGEN) 24 MG/DL (6-23); CALCIUM, SERUM 8.9 MG/DL (8.5-10.4); CREATININE 1.65 MG/DL (0.55-1.02); GFR AFRICAN AMERICAN 41 ML/MIN (>=60); GFR NON AFRICAN AMERICAN 35 ML/MIN (>=60); GLUCOSE, SERUM 93 MG/DL (60-99); SODIUM, SERUM 138 MMOL/L (135-148)
[2017-04-15 11:14] LABS: CPK 284 U/L (0-200); TROPONIN I <0.02 NG/ML (<0.05)
[2017-04-15 11:16] LABS: CK-MB 2.5 NG/ML
[2017-04-16 06:26] LABS: CALCIUM, SERUM 8.7 MG/DL (8.5-10.4); CHLORIDE, SERUM 110 MMOL/L (96-112); CO2 (CARBON DIOXIDE) 26 MMOL/L (24-34); GFR AFRICAN AMERICAN 64 ML/MIN (>=60); GFR NON AFRICAN AMERICAN 55 ML/MIN (>=60); GLUCOSE, SERUM 83 MG/DL (60-99); PHOSPHORUS, SERUM 2.8 MG/DL (2.5-4.5); POTASSIUM, SERUM 4.3 MMOL/L (3.5-5.3); SODIUM, SERUM 142 MMOL/L (135-148)
[2017-04-16 06:27] LABS: BUN (BLOOD UREA NITROGEN) 14 MG/DL (6-23); CREATININE 1.14 MG/DL (0.55-1.02)
[2017-04-17] MEDS ORDERED: COD15 PO (11:55)
[2017-04-17] MEDS ORDERED: VITAMIN D400 UNI1 PO (11:56)
[2017-04-17] MEDS ORDERED: FLORASTOR250 MG PO (11:57)
[2017-04-17] MEDS ORDERED: PRILO PO (11:57)
[2017-04-17] MEDS ORDERED: STRESS 500 PO (11:59)
== END 2017-04-18 13:45 | disposition home or self-care (01) | DRG 683 ==
LOC: ER 21:32 → 4SO 21:57
PROVIDERS: Emergency Medicine; Internal Medicine; Nurse Practitioner Family; Registered Nurse; Surgery
DX: N17.9 Acute kidney failure, unspecified (principal); K50.018 Crohn's disease of small intestine with other complication; E87.1 Hypo-osmolality and hyponatremia; N18.3 Chronic kidney disease, stage 3 (moderate); E87.5 Hyperkalemia; F31.9 Bipolar disorder, unspecified; F41.9 Anxiety disorder, unspecified; E86.0 Dehydration; Z98.890 Other specified postprocedural states; Z88.5 Allergy status to narcotic agent; Z88.1 Allergy status to other antibiotic agents; Z88.8 Allergy status to other drugs, medicaments and biological substances; E86.9 Volume depletion, unspecified; Z93.2 Ileostomy status; Z79.52 Long term (current) use of systemic steroids; Z90.49 Acquired absence of other specified parts of digestive tract
CPT/HCPCS: 71020; 74176; 80048; 80069; 81001; 82330; 82550; 82553; 83735; 83935; 84145; 84300; 84484; 85025; 85610; 85730; 87045; 87046; 87046-59; 87493; 87493-59; 87899; 87899-59; 89055; 93005; 99285; A9270-GY; J2405